=== PATIENT | male | born 1965 ===

== ENCOUNTER 2023-02-11 07:50 | Outpatient (AMB) | payer BC, SELFPAY ==
--- NOTE | 2023-02-11 08:09 | A.OFFVIS_ITS ---
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 Pt states his CPAP machine for 10 years and is now needs a new one as it is malfunctioning. Gr[employer] 9 [employer] 12 Teacher Required: No Allergies No Known Allergies Allergy (Verified 02/11/23 08:11) HPI HPI Comments History of Present Illness Details 57 y/o male patient presents for new in- person visit to manage sleep study. Pt reports that he was diagnosed with ZACHARY more than 10 years ago and has been using CPAP since then. He had a home sleep study and was told that his AHI was 23/hr. He is not sure what his CPAP setting, but it is comfortable and sleeps well with it. He can sleep 6 hrs, rested and refreshed in the morning. His CPAP send a message that the motor life has passed and need a new CPAP. Sleep questionnaire: Have you ever been diagnosed with a sleep disorder? Yes, ZACHARY. Have you ever had a sleep study in the past? Yes, had a home sleep study more than 10 years ago. Have you ever been treated for a sleep disorder? Yes, with CPAP. Do you take medications for a sleep disorder? No. Do you snore? Yes Do you wake up gasping at night? No. Do you have episodes of apneas? Yes If yes, are they witnessed? Yes. Do you have episodes of nocturnal chest pain or dyspnea? No. Do you have difficulty initiating sleep? No. Do you have difficulty maintaining sleep? No Do you wake up tired? No. Do you have headaches upon awakening? No. Do you wake up with dry mouth or throat? Yes, sometimes. Do you have GERD? No. Do you have nocturia? No. Do you have nocturnal leg cramps? Rare. Do you have symptoms of restless legs? Rare. Do you act out your dreams? No. Sleep hygiene questionnaire: What is your usual sleep routine? Usual bedtime is at 10-11 pm; Usual wake up time is at 4:30 pm. Do you take naps? No Is your sleep environment cool, dark, and quiet? Yes. Do you exercise? Yes, walking. Do you take caffeine or other stimulants? Yes, Do you use electronics in bed? Yes What is your work schedule? 5 am to 5 pm Hypersomnolence questionnaire: Do you have daytime tiredness or fatigue? No. Do you easily fall asleep when inactive? No. Have you ever had episodes of sudden weakness? No. Have you ever had episodes of sudden weakness associated with strong emotions? No. PFSH Surgical History (Updated 02/11/23 @ 08:13 by Ciarra Lucas CMA) Hx of tonsillectomy Family History (Updated 02/11/23 @ 08:14 by Ciarra Lucas CMA) Father HTN (hypertension) Mother No problems noted. Brother HTN (hypertension) Social History (Updated 02/11/23 @ 08:15 by Ciarra Lucas CMA) Household Members: Spouse and Children Housing: House Alcohol intake: current Comment: occasional Patient Tobacco Use Status: Never used Tobacco Review of Systems Const All systems reviewed & are unremarkable except as noted in HPI and below ENT Reports Normal hearing present Neuro Reports Normal hearing present Physical Exam Const General: cooperative Nutritional Appearance: obese Orientation/consciousness: patient oriented x3 Neck Neck: Yes full ROM and Yes supple Resp Effort & Inspection: normal respiratory effort and able to speak in complete sentences Neuro General: patient oriented x3, gait normal and moves all extremities Cranial nerves: Yes Bilaterally intact EOM present, Yes Normal facial strength present, Yes Midline tongue present, Yes Symmetric palate elevation present, Yes Normal hearing present and Yes Ability to bilaterally rotate head present Cognition (Neuro): normal cognition Gait exam (Neuro): Normal gait present Motor exam (neuro): 5/5 motor strength present throughout, Pronator motor function not present and no tremor noted Psych Appearance: grossly normal Mental Status: mental status grossly normal Speech and movement: Normal speech and movement present Affect: normal affect Attitude: cooperative Assessment & Plan Assessment & Plan (1) ZACHARY on CPAP: Code(s): G47.33 - Obstructive sleep apnea (adult) (pediatric) Plan Pt is advised to undergo home sleep study to assess for sleep apnea and apply for new CPAP. Will f/u with pt after study to discuss results and appropriate treatment options. Sleep hygiene education provided. Limit electronic use before bedtime. Pt to call with any worsening concerns or questions. Orders: Orders RT home sleep study Today G47.33 - Obstructive sleep apnea (adult) (pediatric) Coding Level of Care Code New Pt Level 3 (19784) Diagnoses ZACHARY on CPAP G47.33
[2023-02-11 08:32] VITALS: BMI 39.0
== END 2023-02-11 08:44 | disposition home or self-care (01) ==
PROVIDERS: PCP Internal Medicine; Visit Provider Nurse Practitioner Family
DX: G47.33 Obstructive sleep apnea (adult) (pediatric) (principal)
CPT/HCPCS: 99203

== ENCOUNTER → 2023-02-11 07:50 | Outpatient (BNVA) | payer BC, SELFPAY | PROVIDERS: PCP Internal Medicine; Visit Provider Nurse Practitioner Family ==

== ENCOUNTER → 2023-03-29 07:53 | Outpatient (REF) | payer BC, SELFPAY | LOC: HO.SL 07:53 | PROVIDERS: PCP Internal Medicine; Visit Provider Nurse Practitioner Family | DX: G47.33 Obstructive sleep apnea (adult) (pediatric) (principal) | CPT/HCPCS: 95806 ==

== ENCOUNTER → 2023-03-29 08:05 | Outpatient (BNV) | payer BC, SELFPAY | PROVIDERS: PCP Internal Medicine; Visit Provider Psychiatry & Neurology Neurology | DX: G47.33 Obstructive sleep apnea (adult) (pediatric) (principal) | CPT/HCPCS: 95806 ==

== ENCOUNTER 2023-06-14 07:57 | Outpatient (AMB) | payer BC, SELFPAY ==
--- NOTE | 2023-06-14 07:58 | A.OFFVIS_ITS ---
Intake Vital Signs 06/14/23 07:59 Height 5 ft 10 in Weight 278 lb BMI 39.9 BP 150/92 H Blood Pressure Location Rt brachial Position Sitting Pulse 78 Pulse Source Pulse Oximeter Pulse Oximetry (%) 98 Oxygen Delivery Method Room Air Intake Visit Reasons: 4 mo f/u -ZACHARY - CONF w/address Intake Note: Patient presents for 4 month follow up. Allergies No Known Allergies Allergy (Verified 06/14/23 08:00) HPI HPI Comments History of Present Illness Details 57 y/o male patient presents for follow up of sleep study. The home sleep study result was significant for a severe degree of sleep apena with increased severity in supine sleep. The AHI was 25/hr, supine AHI was 37/hr and oxygen lamberto was 84%. He started APAP at [id number]. CPAP compliance and therapy response (03/12/23-06/09/23) reviewed. Pt is on APAP at [id number]. The usage days 31 days and the average usage hours 7 hrs 50 min. The max pressure was 10.9 and the residual AHI was 2.5/hr. Pt reports he sleeps well, not waking up in the middle of night. Daytime sleepiness has improved, and he started exercise. However, he feels he has difficulty breathing out when he uses CPAP. [facility] Surgical History (Updated 02/11/23 @ 08:13 by Ciarra Lucas CMA) Hx of tonsillectomy Family History Father HTN (hypertension) Mother No problems noted. Brother HTN (hypertension) Social History Household Members: Spouse and Children Housing: House Alcohol intake: current Comment: occasional Patient Tobacco Use Status: Never used Tobacco Review of Systems Const All systems reviewed & are unremarkable except as noted in HPI and below ENT Reports Normal hearing present Neuro Reports Normal hearing present Physical Exam Vital Signs: Last Vital Signs Pulse 78 06/14/23 07:59 BP 150/92 H 06/14/23 07:59 Pulse Ox 98 06/14/23 07:59 Oxygen Delivery Method Room Air 06/14/23 07:59 BMI result Body Mass Index 39.9 Const General: cooperative Nutritional Appearance: obese Orientation/consciousness: patient oriented x3 Neck Neck: Yes full ROM and Yes supple Resp Effort & Inspection: normal respiratory effort and able to speak in complete sentences Neuro General: patient oriented x3, gait normal and moves all extremities Cranial nerves: Yes Bilaterally intact EOM present, Yes Normal facial strength present, Yes Midline tongue present, Yes Symmetric palate elevation present, Yes Normal hearing present and Yes Ability to bilaterally rotate head present Cognition (Neuro): normal cognition Gait exam (Neuro): Normal gait present Motor exam (neuro): 5/5 motor strength present throughout, Pronator motor function not present and no tremor noted Psych Appearance: grossly normal Mental Status: mental status grossly normal Speech and movement: Normal speech and movement present Affect: normal affect Attitude: cooperative Assessment & Plan Assessment & Plan (1) ZACHARY on CPAP: Comment: Severe degree of sleep apnea with increased severity in supine sleep. AHI was 25/hr, supine AHI was 37/hr and oxygen lamberto was 84%. Code(s): G47.33 - Obstructive sleep apnea (adult) (pediatric) Plan Advised patient to continue to use APAP at [id number] as patient experiences good clinical effects, sleep quality and daytime sleepiness has improved. Change EPR to 3. Stressed compliance, use CPAP nightly and more than 4 hrs. Wt reduction advised. Coding Level of Care Code Est Pt Level 3 (45813) Diagnoses ZACHARY on CPAP G47.33
[2023-06-14 07:59] VITALS: BP 150/92; PULSE 78; O2SAT 98; BMI 39.9
== END 2023-06-14 08:17 | disposition home or self-care (01) ==
PROVIDERS: PCP Internal Medicine; Visit Provider Nurse Practitioner Family
DX: G47.33 Obstructive sleep apnea (adult) (pediatric) (principal)
CPT/HCPCS: 99213

== ENCOUNTER → 2023-06-14 07:57 | Outpatient (BNVA) | payer BC, SELFPAY | PROVIDERS: PCP Internal Medicine; Visit Provider Nurse Practitioner Family ==

== ENCOUNTER 2023-08-27 05:25 | Emergency (ER) | payer BC, SELFPAY ==
--- NOTE | ~2023-08-27 | CT_ITS ---
EXAMINATION: CT ABDOMEN AND PELVIS WITHOUT CONTRAST CLINICAL INFORMATION: Hematuria flank pain discomfort COMPARISON: None available. TECHNIQUE: Multidetector volumetric imaging was performed from the superior aspect of the liver through the pubic symphysis. Sagittal and coronal reformatted images were obtained on the technologist's workstation. This CT examination was performed using dose optimization techniques as appropriate, variously including the following: *Automated exposure control *Adjustment of mA and/or kV according to patient size (this includes techniques or standardized protocols for targeted exams where dose is matched to indication/reason for exam; i.e. extremities or head) *Use of iterative reconstruction technique DLP: 786 mGy-cm FINDINGS: LUNG BASES: Bibasilar atelectasis. No pneumothorax. No large pleural effusion. LIVER, GALLBLADDER, AND BILIARY TREE: The liver is normal in size, shape, and attenuation. No focal hepatic lesion or biliary ductal dilatation is present. The gallbladder is unremarkable with no evidence of radiopaque gallstones, gallbladder wall thickening, or obvious pericholecystic inflammatory changes. PANCREAS: Fatty infiltration of the pancreatic head SPLEEN: Spleen is enlarged measuring 13.5 cm. ADRENAL GLANDS: Unremarkable. KIDNEYS AND URETERS: Questionable 4 mm calculus in the region of the left ureterovesicular junction though given lack of ureteral dilatation or stranding this potentially represents a pelvic phlebolith. The kidneys are normal in size, shape, and attenuation. No hydronephrosis, hydroureter, or calculi seen. No perinephric stranding. BLADDER: Unremarkable. GASTROINTESTINAL TRACT: Small hiatal hernia. Colonic diverticulosis without acute diverticulitis. The small and large bowel are unremarkable. The appendix is unremarkable. ABDOMINAL WALL: Fat filled umbilical hernia. Small fat filled right inguinal hernia. LYMPH NODES: No enlarged lymph nodes per size criteria VASCULAR: Abdominal aorta is nonaneurysmal. PELVIC VISCERA: Prostate measures 5.8 x 3.6 cm. OSSEOUS STRUCTURES: Multilevel degenerative changes of the thoracolumbar spine sclerotic focus left femoral head and neck statistically representing bone islands. Degenerative arthropathy of the right sacroiliac joint. CT/CT abdomen pelvis wo IV con IMPRESSION: 1. Questionable 4 mm calculus in the region of the left ureterovesicular junction though given lack of ureteral dilatation or stranding this potentially represents a pelvic phlebolith. 2. Spleen is enlarged measuring 13.5 cm. 3. Small hiatal hernia. 4. Colonic diverticulosis without acute diverticulitis. 5. Fat filled umbilical hernia. Small fat filled right inguinal hernia.
[2023-08-27 05:37] VITALS: BP 150/77; PULSE 77; RESP 16; TEMP 36.7; O2SAT 96; BMI 38.7
[2023-08-27 05:43] LABS: MANUAL DIFF FLAG NO
[2023-08-27 05:44] LABS: Basophils Percent Auto 0.4 % (0-2); Eosinophils Absolute Auto 0.1 X10*3/uL (0.0-0.4); Eosinophils Percent Auto 2.2 % (0-4); Hematocrit 42.1 % (42.0-52.0); Hemoglobin 14.6 g/dl (14.0-18.0); Imm Gran Abs Auto 0.03 X10*3/uL (0.00-0.03); Imm Gran Pct Auto 0.6 % (0.0-0.4); Lymphocytes Absolute Auto 1.2 X10*3/uL (1.2-4.9); Lymphocytes Percent Auto 23.1 % (20-40); Mean Corpuscular HGB Conc 34.7 g/dl (31.0-36.0); Mean Corpuscular Hemoglobin 29.9 pg (27.0-33.0); Mean Corpuscular Volume 86.3 fL (80.0-98.0); Mean Platelet Volume 8.6 fL (9.4-12.4); Monocytes Absolute Auto 0.4 X10*3/uL (0.1-1.2); Monocytes Percent Auto 8.1 % (2-11); Neutrophils Absolute Auto 3.3 x10*3/uL (2.0-8.3); Neutrophils Percent Auto 65.6 % (45-73); Platelet Count 144 X10*3/uL (160-400); Red Blood Count 4.88 X10*6/uL (4.60-5.80); Red Cell Distribution Width 14.4 % (11.0-16.0); White Blood Count 5.1 X10*3/uL (4.8-10.8)
[2023-08-27 05:49] LABS: Appearance Urine Clear; Color Urine Yellow; Glucose Urine UA Negative (Negative); Leukocyte Esterase Urine Negative (Negative); Nitrite Urine Negative (Negative); PH 5.5 (5.0-9.0); Urine Blood Negative (Negative); Urine Ketones Trace mg/dL (Negative); Urine Protein Negative (Neg-Trace)
[2023-08-27 06:02] LABS: Alanine Aminotransferase 19 U/L (0-40); Alkaline Phosphatase 77 U/L (39-117); Anion Gap 15 (12-20); Aspartate Amino Transferase 24 U/L (5-37); Bilirubin Direct 0.1 mg/dL (0.0-0.5); Bilirubin Total 0.3 mg/dL (0.0-1.0); Blood Urea Nitrogen 21 mg/dL (9-16); Carbon Dioxide 26 mmol/L (22-29); Chloride 105 mmol/L (96-108); Creatinine Clr Calc Pharmacy 86.9; Estimated Glomerular Filt Rate > 60; Glucose Random 126 mg/dL (60-115); Lipase 21 U/L (8-78); Potassium 3.8 mmol/L (3.3-5.1); Sodium 142 mmol/L (135-145); Total Protein 6.7 g/dL (6.5-8.0)
--- NOTE | 2023-08-27 06:45 | ED.MALEGU ---
HPI - Male Genitourinary General Chief complaint: Urogenital-Male Stated complaint: ? Kidney Stone Time Seen by Provider: 08/27/23 06:41 Source: patient Mode of arrival: ambulatory Limitations: no limitations History of Present Illness ED Provider: Oscar CALDERA HPI Narrative: This is a 58-year-old male history of ZACHARY on CPAP, obesity presenting to the emergency department with blood in urine for the past 3 weeks. Patient reports that this is associated with urinary frequency, urgency, dysuria, r flank pain. He has never had a kidney stone in the past however thinks this maybe a kidney stone. He was seen by his PCP for this, ultrasound was ordered however he has not yet had it done because it is taking too long. He reports symptoms do not seem to be getting any better instead they have persisted and gotten worse. Patient denies fevers, chills, chest pain, shortness of breath, nausea, vomiting, abdominal pain, headache, vision changes, dizziness and weakness. Related Data Home Medications ?Medication ?Instructions ?Recorded ?Confirmed hydrochlorothiazide 12.5 mg tablet 12.5 mg PO DAILY 02/11/23 Previous Rx's ?Medication ?Instructions ?Recorded ketorolac 10 mg tablet 10 mg PO TID PRN pain 5 days #15 08/27/23 tabs lidocaine 5 % topical patch 1 patch topical DAILY PRN pain #15 08/27/23 ea prednisone 20 mg tablet 20 mg PO DAILY 5 days #5 tabs 08/27/23 Allergies Allergy/AdvReac Type Severity Reaction Status Date / Time No Known Allergies Allergy Verified 08/27/23 05:38 Review of Systems Review of Systems: Yes all other systems are reviewed and are negative [facility] Past Medical History Attestation statement: The following information was validated with the patient. Source: old records reviewed and nursing notes reviewed Surgical History Hx of tonsillectomy Family History Family History Father HTN (hypertension) Mother No problems noted. Brother HTN (hypertension) Social History Social History Household Members: Spouse and Children Housing: House Alcohol intake: current Comment: occasional Patient Tobacco Use Status: Never used Tobacco Smoked in Last 30 Days: No Use of substances other than those prescribed or required for medical reasons: No Advance Directives: No Advance Directives Information Provided: Yes Do you have a plan to hurt others: No Plan Physical Exam Vital Signs: Vital Signs: Last Vital Signs Temp 98.1 F 08/27/23 05:37 Pulse 77 08/27/23 05:37 Resp 16 08/27/23 05:37 BP 150/77 H 08/27/23 05:37 Pulse Ox 96 08/27/23 05:37 O2 Del Method Room Air 08/27/23 05:37 BMI result Body Mass Index 38.7 Vital signs stable Appearance: Alert.? Oriented X3.? No acute distress.? Head: Normocephalic, atraumatic, no step-offs or deformities Eyes: Pupils equal, round and reactive to light.? Neck: Normal inspection.? Neck supple.? CVS: Normal heart rate and rhythm.? Pulses normal.? Respiratory: No respiratory distress.? Breath sounds normal.? Abdomen: Soft and nontender.? Skin: Skin warm and dry.? Normal skin color.? Normal skin turgor.? Extremities: No lower extremity edema.? No calf ttp. 5/5 strength to bilateral upper and lower extremities Neuro: Oriented X 3.? No motor deficit.? No sensory deficit. CN 2-12 intact Course Reevaluation(s) Reevaluation #1: CBC with no acute findings requiring intervention. No leukocytosis or anemia. Platelet count slightly low however unclear if patient's baseline no previous labs to compare with. Chemistry with slightly elevated BUN and creatinine, fluids ordered. UA without infection. CT pending. Time: 06:46 Reevaluation #2: CT abdomen pelvis with question 4 mm calculus in the region of the left UVJ question pelvic phleboliths, enlarged spleen, small hiatal hernia, colonic diverticulosis, fat filled umbilical hernia, small fat filled inguinal hernia. Will have him follow up with PCP for these findings. The patient feeling better. Will discharge with Toradol. Educated patient on diagnosis and treatment plan, answered all question, patient verbalizes understanding. At this time patient will be discharged home, advised to return with new or worsening symptoms. Educated on worrisome signs and symptoms and when to return. At this time I feel comfortable discharge home. Time: 09:30 Medications Administered Discontinued Medications Generic Name Dose Route Start Last Admin Trade Name Ronald PRN Reason Stop Dose Admin Sodium Chloride 1,000 mls @ 999 mls/hr 08/27/23 07:00 08/27/23 08:25 Ns IV 08/27/23 08:00 Infused .Q1H1M MICHAEL Infusion Ketorolac Tromethamine 30 mg 08/27/23 07:24 08/27/23 07:32 Ketorolac Tromethamine 15 Mg/Ml Vial IVPUSH 08/27/23 07:25 30 mg ONCE ONE Administration Lidocaine 1 patch 08/27/23 08:08 08/27/23 08:25 Lidocaine 4 % Patch Adh..Patch TRANSDERMA 08/27/23 08:09 1 patch ONCE ONE Administration Protocol Medical Decision Making Medical Decision Making [facility] Narrative: 0647 58-year-old male presents with hematuria, urinary frequency, dysuria x3 weeks Physical exam benign History and physical exam concerning for UTI versus cystitis versus kidney stone. Unlikely pyelonephritis, acute abdomen. Less likely malignancy. No signs of cauda equina, epidural abscess, cord compression. Plan labs, imaging, urine Differential Diagnosis Differential Diagnoses: The differential diagnosis associated with the presentation includes History and physical exam concerning for UTI versus cystitis versus kidney stone. Unlikely pyelonephritis, acute abdomen. Less likely malignancy. No signs of cauda equina, epidural abscess, cord compression. Admission/Observation Consideration of admission/observation: Escalation of care including admission/observation considered Possible Lab Data [facility] Lab Attestation statement: I reviewed the patient's lab results. 08/27/23 05:39 08/27/23 05:39 Labs: Lab Results 08/27/23 08/27/23 Range/Units 05:39 05:43 WBC 5.1 (4.8-10.8) X10*3/uL RBC 4.88 (4.60-5.80) X10*6/uL Hgb 14.6 (14.0-18.0) g/dl Hct 42.1 (42.0-52.0) % MCV 86.3 (80.0-98.0) fL MCH 29.9 (27.0-33.0) pg MCHC 34.7 (31.0-36.0) g/dl RDW 14.4 (11.0-16.0) % Plt Count 144 L (160-400) X10*3/uL MPV 8.6 L (9.4-12.4) fL Immature Gran % (Auto) 0.6 H (0.0-0.4) % Neut % (Auto) 65.6 (45-73) % Lymph % (Auto) 23.1 (20-40) % [place] % (Auto) 8.1 (2-11) % Eos % (Auto) 2.2 (0-4) % Baso % (Auto) 0.4 (0-2) % Lymph # (Auto) 1.2 (1.2-4.9) X10*3/uL [place] # (Auto) 0.4 (0.1-1.2) X10*3/uL Eos # (Auto) 0.1 (0.0-0.4) X10*3/uL Baso # (Auto) 0.0 (0.0-0.2) X10*3/uL Abs Immat Gran (auto) 0.03 (0.00-0.03) X10*3/uL Absolute Neuts (auto) 3.3 (2.0-8.3) x10*3/uL Absolute Nucleated RBC 0.000 (0.0-0.012) X10*3/uL Nucleated RBC % (auto) 0.0 (0.0-0.2) /100WBC Sodium 142 (135-145) mmol/L Potassium 3.8 (3.3-5.1) mmol/L Chloride 105 (96-108) mmol/L Carbon Dioxide 26 (22-29) mmol/L Anion Gap 15 (12-20) BUN 21 H (9-16) mg/dL Creatinine 1.23 (0.5-1.4) mg/dL Estim Creat Clear Calc 86.9 Estimated GFR > 60 Random Glucose 126 H (60-115) mg/dL Calcium 9.0 (8.4-10.2) mg/dL Total Bilirubin 0.3 (0.0-1.0) mg/dL Direct Bilirubin 0.1 (0.0-0.5) mg/dL AST 24 (5-37) U/L ALT 19 (0-40) U/L Alkaline Phosphatase 77 (39-117) U/L Total Protein 6.7 (6.5-8.0) g/dL Albumin 4.0 (3.5-5.0) g/dL Lipase 21 (8-78) U/L Urine Color Yellow Urine Appearance Clear Urine pH 5.5 (5.0-9.0) Ur Specific [place] 1.020 (1.005-1.025) Urine Protein Negative (Neg-Trace) mg/dL Urine Glucose (UA) Negative (Negative) mg/dL Urine Ketones Trace (Negative) mg/dL Urine Blood Negative (Negative) Urine Nitrite Negative (Negative) Ur Leukocyte Esterase Negative (Negative) Independent Interpretation I performed an independent interpretation of an: CT Scan Radiology Impression Discussion of test interpretation with radiology: I have reviewed the radiologist's reading. External Record Review External record reviewed: Outpatient record Chronic Conditions Patient?s care impacted by: Other (Obesity, ZACHARY on CPAP) Critical Care Time Critical Care Time Critical Care Time: No Discharge Plan Discharge Clinical Impression: Dysuria, Acute right flank pain, Kidney calculi, Splenomegaly Patient Disposition: Home, Self-Care Instructions: Dysuria (ED), Flank Pain (ED) Additional Instructions: Take your medications as prescribed. If you were prescribed antibiotics today, it is important that you take your medication to their entirety, do not skip any doses, do not finish them early. Follow-up with your primary care provider this week. Please follow-up with urology. Information below. Return to the emergency department with new or worsening symptoms. Such as fevers, chills, chest pain, shortness of breath, nausea, vomiting, dizziness, headache, vision changes, lethargy In case of emergency call 911 Toradol has been sent to your pharmacy, you tolerated this well in the department. Please take this as prescribed do not take this with ibuprofen, or other NSAIDs, do not mix this with alcohol. Side effects of this medication including increased risk for bleeding and possible kidney injury. Your labs and urine looked good. Your CT scan is as follows. CT/CT abdomen pelvis wo IV con IMPRESSION: 1. Questionable 4 mm calculus in the region of the left ureterovesicular junction though given lack of ureteral dilatation or stranding this potentially represents a pelvic phlebolith. 2. Spleen is enlarged measuring 13.5 cm. 3. Small hiatal hernia. 4. Colonic diverticulosis without acute diverticulitis. 5. Fat filled umbilical hernia. Small fat filled right inguinal hernia. Prescriptions: New ketorolac 10 mg tablet 10 mg PO TID PRN (Reason: pain) 5 Days Qty: 15 0RF prednisone 20 mg tablet 20 mg PO DAILY 5 Days Qty: 5 0RF lidocaine 5 % adhesive patch,medicated 1 patch topical DAILY PRN (Reason: pain) Qty: 15 0RF Rx Instructions: leave on most painful area for up to 12 hrs No Action hydrochlorothiazide 12.5 mg tablet 12.5 mg PO DAILY Referrals: [facility] [Provider Group] - 1 day Charles Jimenez DO, MD [Primary Care Provider] - 2 days Stand Alone Forms: Work/School Release Print Language: Persian
[2023-08-27] MEDS: 0.9 % Sodium Chloride 1,000 ML 999 ML IV (07:08)
--- NOTE | 2023-08-27 07:13 | PC.NURSE ---
Pt reports right flank pain X3 weeks, had blood in urine 3 weeks ago as well that has resolved, pain persists. Denies CP, SOB, fevers, N/V/D. No hx of kidney issues but does have signifcant family hx. Alert and oriented, breathing even and unlabored, skin warm and dry. Pain 6/10 in right flank
[2023-08-27] MEDS: Ketorolac Tromethamine 15 MG/ML VIAL 30 MG IVPUSH (07:32)
[2023-08-27] MEDS: Lidocaine 4 % Patch ADH..PATCH 1 PATCH TRANSDERMA (08:25)
[2023-08-27 10:11] VITALS: BP 156/93; PULSE 67; RESP 17; TEMP 37; O2SAT 97
== END 2023-08-27 10:12 | disposition home or self-care (01) ==
PROVIDERS: Emergency Provider Emergency Medicine; PCP Internal Medicine
DX: R30.0 Dysuria (principal); N20.0 Calculus of kidney; R16.1 Splenomegaly, not elsewhere classified; R10.9 Unspecified abdominal pain
CPT/HCPCS: 36415; 74176; 80048; 80076; 81003; 83690; 85025; 96361; 96374; 99284; 99285; J1885

== ENCOUNTER 2023-10-18 13:51 | Outpatient (AMB) | payer BC, SELFPAY ==
--- NOTE | 2023-10-18 14:06 | MHC.OFFVIS ---
Intake Visit Reasons: [facility] [place]-Kidney Stones(08/26) Intake Note: Patient presents to the office today for a ER follow up-kidney stones Urology Meds:None Blood Thinners:None Allergies No Known Allergies Allergy (Verified 12/13/23 08:42) HPI Comments Details: Kiran is a pleasant male. He is a patient Dr. Vianney Shi. He is seen for the following urologic conditions - nephrolithiasis Symptoms resolved No prior stones Discussed follow-up imaging Nephrolithiasis Follow-up presentation through emergency room Imaging - CT Questionable 4 mm calculus in the region of the left ureterovesicular junction Creatinine 1.2 PFSH Surgical History Hx of tonsillectomy Family History Father HTN (hypertension) Mother No problems noted. Brother HTN (hypertension) Social History Household Members: Spouse and Children Housing: House Alcohol intake: current Comment: occasional Patient Tobacco Use Status: Never used Tobacco Review of Systems Const Denies chills and Denies fever(s) Card Reports no additional complaints and Denies syncope Resp Denies cough GI Denies abdominal pain and Denies heartburn Reports as per HPI and Denies change in libido Neuro Denies syncope Psych Denies change in libido Endo Denies change in libido Physical Exam Const General: cooperative, healthy appearing, comfortable and no acute distress Orientation/consciousness: patient oriented x3 HEENT Face and sinus: Yes normal facial exam Mouth: moist mucous membranes Neck Neck: Yes normal visual inspection, Yes full ROM and Yes trachea midline Chest Chest palpation & inspection: normal inspection of the chest Resp Effort & Inspection: normal respiratory effort, able to speak in complete sentences and no respiratory distress GI Inspection: Yes normal to inspection Back/Spine/Pelvis Cervical Spine: normal cervical lordosis Thoracic/Lumbar Spine: thoracic and lumbar spine normal to inspection Skin General skin exam: no rashes or lesions noted Neuro General: patient oriented x3, gait normal, tone normal and moves all extremities Extrem General: Yes normal to inspection and Yes capillary refill normal Assessment & Plan Assessment & Plan (1) Kidney calculi: Code(s): N20.0 - Calculus of kidney Category: Medical (2) Bladder outlet obstruction: Code(s): N32.0 - Bladder-neck obstruction Category: Medical Plan Continue Flomax for a couple of weeks to ensure emptying Four month follow-up imaging Orders: Orders US renal BI 4 Months N20.0 - Calculus of kidney Medications: New tamsulosin (Flomax) 0.4 mg PO BEDTIME 30 tabs 1RF 30 days N32.0 - Bladder-neck obstruction Patient Instructions: Imaging studies, laboratory and physical exam results were discussed and reviewed in detail. No major barriers to patient understanding were identified. An opportunity to ask questions regarding the treatment plan was provided. All questions were answered. The patient expressed understanding and agreement with the above treatment plan. The patient is aware they should contact our office by phone for worsening of their current condition or the appearance of new urologic symptoms. Compliance is encouraged with any medications and followup testing that is ordered. It is a privilege to participate in the urologic care of your patient. If you have any questions or concerns regarding treatment for the above conditions, or other urologic issues, please do not hesitate to contact me. The office telephone contact is [phone]. This note is constructed using voice recognition software. While every effort has been made to ensure accuracy caustic loader errors may have been included. Yours sincerely, Dr Felton Murillo MD, [facility] - Urology Providers of Expert, Compassionate Care for the Genitourinary System Coding Level of Care Code New Pt Level 3 (19363) Diagnoses Kidney calculi N20.0 Bladder outlet obstruction N32.0
== END 2023-10-18 14:57 | disposition home or self-care (01) ==
PROVIDERS: PCP Internal Medicine; Visit Provider Urology
DX: N20.0 Calculus of kidney (principal); N32.0 Bladder-neck obstruction
CPT/HCPCS: 99203

== ENCOUNTER → 2023-10-18 13:51 | Outpatient (BNVA) | payer BC, SELFPAY | PROVIDERS: PCP Internal Medicine; Visit Provider Urology ==

== ENCOUNTER 2023-12-13 08:17 | Outpatient (AMB) | payer BC, SELFPAY ==
--- NOTE | 2023-12-13 08:35 | A.OFFVIS_ITS ---
Vital Signs 12/13/23 08:37 Height 5 ft 10 in Weight 283 lb BMI 40.6 BP 148/98 H Blood Pressure Location Rt brachial Position Sitting Intake Visit Reasons: 6 mnts f/u Intake Note: Patient presents for 6 month follow up Allergies No Known Allergies Allergy (Verified 12/13/23 08:42) HPI Comments Details: 58-yr-old male presents for follow-up visit of sleep apnea. Pt endorses the following interval medical history changes: he has had multiple kidney stones over the summer of unknown etiology- he has f/u consult scheduled for this. He does drink plenty of water, but no coffee or soda. Pt reports he cannot sleep without his CPAP. However his nasal mask is leaking, and the noise is bothersome to him. He does note that he often may have difficulty hearing something said to him due to being distracted by background noises. He feels the PAP pressure itself is good. [place] [id number] Email: [email or web address] Compliance Report Usage 11/13/2023 - 12/12/2023 Usage days 30/30 days (100%) >= 4 hours 30 days (100%) < 4 hours 0 days (0%) Usage hours 236 hours 37 minutes Average usage (total days) 7 hours 53 minutes Average usage (days used) 7 hours 53 minutes Median usage (days used) 7 hours 50 minutes Total used hours (value since last reset - 12/12/2023) 1,652 hours AirSense 10 AutoSet Serial number [id number] Mode AutoSet Min Pressure 5 cmH2O Max Pressure 20 cmH2O EPR Fulltime EPR level 3 Response Standard Therapy Pressure - cmH2O Median: 7.8 95th percentile: 10.0 Maximum: 11.1 Leaks - L/min Median: 0.2 95th percentile: 5.1 Maximum: 10.7 Events per hour AI: 2.5 HI: 0.7 AHI: 3.2 Apnea Index Central: 1.1 Obstructive: 1.3 Unknown: 0.0 RERA Index 0.0 PFSH Surgical History Hx of tonsillectomy Family History Father HTN (hypertension) Mother No problems noted. Brother HTN (hypertension) Social History Household Members: Spouse and Children Housing: House Alcohol intake: current Comment: occasional Patient Tobacco Use Status: Never used Tobacco Physical Exam Vital Signs: Last Vital Signs BP 148/98 H 12/13/23 08:37 BMI result Body Mass Index 40.6 Const General: no acute distress Orientation/consciousness: patient oriented x3 HEENT Other: Mallampati stage Resp Effort & Inspection: normal respiratory effort and able to speak in complete sentences Neuro General: patient oriented x3 Psych Mental Status: mental status grossly normal Speech and movement: Clear speech present Attitude: cooperative Assessment & Plan Assessment & Plan (1) ZACHARY on CPAP: Comment: Severe degree of sleep apnea with increased severity in supine sleep. AHI was 25/hr, supine AHI was 37/hr and oxygen lamberto was 84%. Code(s): G47.33 - Obstructive sleep apnea (adult) (pediatric) Category: Medical Plan Continue APAP 5-20 cmH2O w/ EPR 3 nightly > 4 hours, as pt continues to have good clinical effect from use. Will request new mask fitting and supplies- in hopes pt can find one w/ less leakage. Pt may benefit from trying a noise cancellation ear plug such as loop ear plugs that allow sound transmission of alarms etc but can block out the sound from the leakage. Info shared w/ pt. If ineffective, consider adjusting APAP 5-20 to CPAP 8-9cmH2O. Clean CPAP machine and supplies routinely. Change CPAP supplies routinely. Pt to contact us or respiratory company with any questions or concerns. Pt to follow-up in 6 months or sooner prn. Coding Level of Care Code Est Pt Level 3 (53262) Diagnoses ZACHARY on CPAP G47.33
[2023-12-13 08:37] VITALS: BP 148/98; BMI 40.6
== END 2023-12-13 09:26 | disposition home or self-care (01) ==
PROVIDERS: PCP Internal Medicine; Visit Provider Nurse Practitioner Family
DX: G47.33 Obstructive sleep apnea (adult) (pediatric) (principal)
CPT/HCPCS: 99213

== ENCOUNTER → 2023-12-13 08:17 | Outpatient (BNVA) | payer BC, SELFPAY | PROVIDERS: PCP Internal Medicine; Visit Provider Nurse Practitioner Family ==

== ENCOUNTER 2024-02-06 09:48 | Outpatient (REF) | payer BC, SELFPAY | END 2024-02-06 09:49 | disposition home or self-care (01) | LOC: HO.HMGCX 09:48 | PROVIDERS: PCP Internal Medicine; Visit Provider Urology | DX: N20.0 Calculus of kidney (principal) | CPT/HCPCS: 76775 ==

== ENCOUNTER 2024-02-17 13:35 | Outpatient (AMB) | payer BC, SELFPAY ==
--- NOTE | 2024-02-17 13:38 | MHC.OFFVIS ---
Intake Visit Reasons: 4m/US Intake Note: Patient is present for 4M/US Urology Medication:NONE Antibiotic Allergy:NONE Blood Thinner:NONE Branding Machine Operator Required: No Allergies No Known Allergies Allergy (Verified 02/17/24 13:38) HPI Comments Details: Kiran is a pleasant male. He is a patient Dr. Tavera. He is seen for the following urologic conditions - nephrolithiasis Follow-up imaging for stones Encourage fluids Lemon juice Twelve month follow-up Nephrolithiasis Follow-up presentation through emergency room Imaging - CT Questionable 4 mm calculus in the region of the left ureterovesicular junction - 01/28 renal ultrasound right 3 mm possible calcification Creatinine 1.2 PFSH Surgical History Hx of tonsillectomy Family History Father HTN (hypertension) Mother No problems noted. Brother HTN (hypertension) Social History Household Members: Spouse and Children Housing: House Alcohol intake: current Comment: occasional Patient Tobacco Use Status: Never used Tobacco Review of Systems Const Denies chills and Denies fever(s) Card Reports no additional complaints and Denies syncope Resp Denies cough GI Denies abdominal pain and Denies heartburn Reports as per HPI and Denies change in libido Neuro Denies syncope Psych Denies change in libido Endo Denies change in libido Physical Exam Const General: cooperative, healthy appearing, comfortable and no acute distress Orientation/consciousness: patient oriented x3 HEENT Face and sinus: Yes normal facial exam Mouth: moist mucous membranes Neck Neck: Yes normal visual inspection, Yes full ROM and Yes trachea midline Chest Chest palpation & inspection: normal inspection of the chest Resp Effort & Inspection: normal respiratory effort, able to speak in complete sentences and no respiratory distress GI Inspection: Yes normal to inspection Back/Spine/Pelvis Cervical Spine: normal cervical lordosis Thoracic/Lumbar Spine: thoracic and lumbar spine normal to inspection Skin General skin exam: no rashes or lesions noted Neuro General: patient oriented x3, gait normal, tone normal and moves all extremities Extrem General: Yes normal to inspection and Yes capillary refill normal Assessment & Plan Assessment & Plan (1) Kidney calculi: Code(s): N20.0 - Calculus of kidney Category: Medical Plan Twelve month follow-up Orders: Orders US renal BI 12 Months N20.0 - Calculus of kidney Patient Instructions: Imaging studies, laboratory and physical exam results were discussed and reviewed in detail. No major barriers to patient understanding were identified. An opportunity to ask questions regarding the treatment plan was provided. All questions were answered. The patient expressed understanding and agreement with the above treatment plan. The patient is aware they should contact our office by phone for worsening of their current condition or the appearance of new urologic symptoms. Compliance is encouraged with any medications and followup testing that is ordered. It is a privilege to participate in the urologic care of your patient. If you have any questions or concerns regarding treatment for the above conditions, or other urologic issues, please do not hesitate to contact me. The office telephone contact is [phone]. This note is constructed using voice recognition software. While every effort has been made to ensure accuracy discount clerk errors may have been included. Yours sincerely, Dr Felton Murillo MD, [facility] - Urology Providers of Expert, Compassionate Care for the Genitourinary System Coding Level of Care Code Est Pt Level 3 (38186) Diagnoses Kidney calculi N20.0
== END 2024-02-17 13:55 | disposition home or self-care (01) ==
PROVIDERS: PCP Internal Medicine; Visit Provider Urology
DX: N20.0 Calculus of kidney (principal)
CPT/HCPCS: 99213

== ENCOUNTER 2024-06-21 13:45 | Outpatient (AMB) | payer OTHER, SELFPAY ==
--- NOTE | 2024-06-21 14:03 | MHC.OFFVIS ---
Vital Signs 06/21/24 14:06 Height 5 ft 10 in Weight 278 lb BMI 39.9 BP 160/100 H Blood Pressure Location Rt brachial Position Sitting Pulse 75 Pulse Source Pulse Oximeter Pulse Oximetry (%) 96 Oxygen Delivery Method Room Air Intake Visit Reasons: Follow Up Intake Note: Patient presents follow up ZACHARY. Compliance in chart Asset Protection Representative Required: No Accompanied by: Self / Same As Patient Allergies No Known Allergies Allergy (Verified 06/21/24 14:05) Medication List - Last Reconciled 06/21/24 by ESTELLA Avila hydrochlorothiazide 12.5 mg PO DAILY lidocaine 5% 1 patch topical DAILY PRN HPI Comments Details: 58-yr-old male presents for follow-up visit of sleep apnea. Pt denies any significant interval medical hsitory changes. Pt reports he cannot sleep without his CPAP, though he does not love having to use it. Sometimes the mask leaks- but he has tried a few- and this one is the best so far. He feels the PAP pressure itself is good. Pt does clean, change his PAP supplies. Uses dsitilled water. Pt does exercise regulalry- installed a small gym at his [employer]- where he and his staff can work out after work. [facility] [place] [address] Email: [email or web address] Compliance Report Usage 03/07/2024 - 06/13/2024 Usage days 30/30 days (100%) >= 4 hours 30 days (100%) Average usage (days used) 7 hours 58 minutes AirSense 10 AutoSet Serial number [id number] AutoSet Min Pressure 5 cmH2O Max Pressure 20 cmH2O EPR Fulltime EPR level 3 Maximum pressure: 11.1 Leaks - L/min Median: 0.2 95th percentile: 5.1 Maximum: 10.7 Residual AHI: 3.4/hour PFSH Surgical History (Updated 06/21/24 @ 14:07 by Koki Gifford CMA) H/O knee surgery Hx of tonsillectomy Family History Father HTN (hypertension) Mother No problems noted. Brother HTN (hypertension) Social History (Reviewed 06/21/24 @ 14:08 by LENIN Navarro Household Members: Spouse and Children Housing: House Alcohol intake: current Comment: occasional Patient Tobacco Use Status: Never used Tobacco Physical Exam Vital Signs: Last Vital Signs Pulse 75 06/21/24 14:06 BP 160/100 H 06/21/24 14:06 Pulse Ox 96 06/21/24 14:06 Oxygen Delivery Method Room Air 06/21/24 14:06 BMI result Body Mass Index 39.9 Const General: no acute distress Orientation/consciousness: patient oriented x3 Resp Effort & Inspection: normal respiratory effort and able to speak in complete sentences Neuro General: patient oriented x3 Psych Mental Status: mental status grossly normal Speech and movement: Clear speech present Attitude: cooperative Assessment & Plan Assessment & Plan (1) ZACHARY on CPAP: Comment: Severe degree of sleep apnea with increased severity in supine sleep. AHI was 25/hr, supine AHI was 37/hr and oxygen lamberto was 84%. Code(s): G47.33 - Obstructive sleep apnea (adult) (pediatric) Category: Medical Plan Continue APAP 5-20 cmH2O w/ EPR 3 nightly > 4 hours, as pt continues to have good clinical effect from use. If ineffective, consider adjusting APAP 5-20 to CPAP 8-9cmH2O. Clean CPAP machine and supplies routinely. Change CPAP supplies routinely. Continue regular physical activity. Future considerations- Inspire or Zepbound tx. Pt to contact us or respiratory company with any questions or concerns. Pt to follow-up in 6 months or sooner prn. Coding Level of Care Code Est Pt Level 3 (10534) Diagnoses ZACHARY on CPAP G47.33
[2024-06-21 14:06] VITALS: BP 160/100; PULSE 75; O2SAT 96; BMI 39.9
== END 2024-06-21 14:51 | disposition home or self-care (01) ==
LOC: HO.HSMS 13:46
PROVIDERS: PCP Internal Medicine; Visit Provider Nurse Practitioner Family
DX: G47.33 Obstructive sleep apnea (adult) (pediatric) (principal)
CPT/HCPCS: 99213

== ENCOUNTER → 2024-06-21 13:45 | Outpatient (BNVA) | payer OTHER, SELFPAY | PROVIDERS: PCP Internal Medicine; Visit Provider Nurse Practitioner Family ==

== ENCOUNTER 2025-02-19 10:06 | Outpatient (REF) | payer OTHER, SELFPAY ==
--- NOTE | ~2025-02-19 | US_ITS ---
CLINICAL HISTORY: N20.0 - Calculus of kidney US of kidneys Comparison: None provided Findings: Right kidney is normal in size, echogenicity and morphology, 12.1 cm in length. No calculus, mass or hydronephrosis. Left kidney is normal in size, echogenicity and morphology, 13.1 cm in length. No calculus or hydronephrosis. 8 mm hypoechoic avascular cortical lesion in the lower pole, no apparent posterior acoustic features. Limited color Doppler demonstrates unremarkable bilateral blood flow. Impression: 1. Left renal 8 mm hypoechoic lesion, indeterminate, cystic nature is not confirmed by this ultrasound exam, recommend renal CT or MRI. 2. No nephrolithiasis. This document has been electronically signed by: Chelsea Lopez MD on 02/19/2025 12:59:17
== END 2025-02-19 10:07 | disposition home or self-care (01) ==
LOC: HO.HMGCX 10:06
PROVIDERS: PCP Internal Medicine; Visit Provider Urology
DX: N20.0 Calculus of kidney (principal); N32.0 Bladder-neck obstruction
CPT/HCPCS: 76775

== ENCOUNTER → 2025-02-19 10:15 | Outpatient (BNV) | payer OTHER, SELFPAY | PROVIDERS: PCP Internal Medicine; Visit Provider Radiology Diagnostic Radiology | DX: N28.1 Cyst of kidney, acquired (principal) | CPT/HCPCS: 76775 ==

== ENCOUNTER 2025-02-22 08:22 | Outpatient (AMB) | payer OTHER, SELFPAY ==
--- NOTE | 2025-02-22 08:27 | A.OFFVIS_ITS ---
Intake Visit Reasons: 1Y Ultrasound/PVR(set) Intake Note: Patient presents to office for one year follow up with ultrasound and PVR. Allergies No Known Allergies Allergy (Verified 06/21/24 14:05) HPI Comments Details: Kiran is a pleasant male. He is a patient Dr. Jimenez?. He is seen for the following urologic conditions - nephrolithiasis Yearly review Thinks he may have passed small stones Follow-up imaging for stones Encourage fluids - Lemon juice - which he is doing Nephrolithiasis Follow-up presentation through emergency room Family history father had stones Imaging - CT Questionable 4 mm calculus in the region of the left ureterovesicular junction - 01/28 renal ultrasound right 3 mm possible calcification Creatinine 1.2 PFSH Surgical History (Updated 06/21/24 @ 14:07 by Koki Gifford CMA) H/O knee surgery Hx of tonsillectomy Family History Father HTN (hypertension) Mother No problems noted. Brother HTN (hypertension) Social History Household Members: Spouse and Children Housing: House Alcohol intake: current Comment: occasional Patient Tobacco Use Status: Never used Tobacco Review of Systems Const Denies chills and Denies fever(s) Card Reports no additional complaints and Denies syncope Resp Denies cough GI Denies abdominal pain and Denies heartburn Reports as per HPI and Denies change in libido Neuro Denies syncope Psych Denies change in libido Endo Denies change in libido Physical Exam Const General: cooperative, healthy appearing, comfortable and no acute distress Orientation/consciousness: patient oriented x3 HEENT Face and sinus: Yes normal facial exam Mouth: moist mucous membranes Neck Neck: Yes normal visual inspection, Yes full ROM and Yes trachea midline Chest Chest palpation & inspection: normal inspection of the chest Resp Effort & Inspection: normal respiratory effort, able to speak in complete sentences and no respiratory distress GI Inspection: Yes normal to inspection Back/Spine/Pelvis Cervical Spine: normal cervical lordosis Thoracic/Lumbar Spine: thoracic and lumbar spine normal to inspection Skin General skin exam: no rashes or lesions noted Neuro General: patient oriented x3, gait normal, tone normal and moves all extremities Extrem General: Yes normal to inspection and Yes capillary refill normal Assessment & Plan Assessment & Plan (1) Kidney calculi: Code(s): N20.0 - Calculus of kidney Category: Medical Plan Twelve month follow-up Orders: Orders AMB Urinalysis Automated Today N20.0 - Calculus of kidney, N32.0 - Bladder-neck obstruction US renal BI 12 Months N20.0 - Calculus of kidney AMB Post Void Residual by ultrasound Today N20.0 - Calculus of kidney, N32.0 - Bladder-neck obstruction Patient Instructions: This note is constructed using voice recognition software. While every effort has been made to ensure accuracy medical transcriptionist errors may have been included. Imaging studies, laboratory and physical exam results were discussed and reviewed in detail. No major barriers to patient understanding were identified. An opportunity to ask questions regarding the treatment plan was provided. All questions were answered. The patient expressed understanding and agreement with the above treatment plan. The patient is aware they should contact our office by phone for worsening of their current condition or the appearance of new urologic symptoms. Compliance is encouraged with any medications and followup testing that is ordered. It is a privilege to participate in the urologic care of your patient. If you have any questions or concerns regarding treatment for the above conditions, or other urologic issues, please do not hesitate to contact me. The office telephone contact is [phone]. Sincerely, Dr Felton Murillo MD, [facility] - Urology Compassionate Specialist Care for the Genitourinary System Coding Level of Care Code Est Pt Level 4 (34791) Diagnoses Kidney calculi N20.0
== END 2025-02-22 08:52 | disposition home or self-care (01) ==
LOC: HO.HUSH 08:22
PROVIDERS: PCP Internal Medicine; Visit Provider Urology
DX: N20.0 Calculus of kidney (principal)
CPT/HCPCS: 99214